=== PATIENT | male | born 1950 | race Caucasian/White ===

== ENCOUNTER 2018-04-28 13:36 | Emergency (ER) | payer MEDICARE ==
[~2018-04-28] VITALS: Ht 170.2 cm; Wt 68.0 kg
[2018-04-28 13:48] VITALS: BP 149/56
== END 2018-04-28 15:04 | disposition home or self-care (01) ==
LOC: M.ERS 13:36
DX: S60.222A Contusion of left hand, initial encounter (principal); I10 Essential (primary) hypertension; K21.9 Gastro-esophageal reflux disease without esophagitis; Z88.8 Allergy status to other drugs, medicaments and biological substances; W22.8XXA Striking against or struck by other objects, initial encounter; Y93.89 Activity, other specified; Y92.89 Other specified places as the place of occurrence of the external cause; Y99.8 Other external cause status